=== PATIENT | male | born 1970 | race Caucasian/White ===

== ENCOUNTER 2020-01-14 04:55 | Emergency (ER) | payer OTHER ==
[~2020-01-14] VITALS: Ht 185.4 cm; Wt 88.9 kg
--- NOTE | 2020-01-14 05:00 | NUR ---
PT TITA BONNER. TAKEN TO BED 11
[2020-01-14 05:11] VITALS: BP 140/89
--- NOTE | 2020-01-14 05:15 | NUR ---
49 YO M BIB [facility] FOR C/C OF GENERALIZED WEAKNESS X30 MIN. LOC X4. PT STATES HE WOKE UP AND "FELT LIKE HIS BLOOD SUGAR WAS LOW" AND ATE CHOCOLATE. PT STATES HE "FELT LIKE HIS BP MIGHT BE HIGH" SO HE TOOK HIS RX OF LISINOPRIL. PT PRESENTS WITH BLOOD SUGAR OF 228. VSS. FACE IS EVEN AND SMILE SYMMETRICAL. ARMS AND LEGS ARE EQUAL IN STRENGTH BILATERALLY. PT DENIES LOSS OF CONSCIOUSNESS. S1S2 HEARD. LUNG SOUNDS CLEAR THROUGHOUT. CAP REFILL <3. NO N/V/D. DENIES TRAVEL, COUGH, FEVER, OR SOB. PT PLACED ON GEOPHYSICAL ENGINEER. BED LOCKED AND IN LOWEST POSITION. SIDE RAILSX1. NK[facility] MED HX: HTN, DM2, CIRROSIS RX: LISINOPRIL, INSULIN, GLIMEPIRIDE
--- NOTE | 2020-01-14 05:18 | NUR ---
ERMD AT BEDSIDE EVALUATING PT
--- NOTE | 2020-01-14 05:31 | NUR ---
LABS DRAWN AND WALKED TO LAB
--- NOTE | 2020-01-14 05:31 | NUR ---
EKG BEING PERFORMED AT BEDSIDE
[2020-01-14 05:46] LABS: BASOPHILS % (AUTO) 0.7 % (0.0-2.0); EOSINOPHILS # (AUTO) 0.1 K/uL (0-0.4); EOSINOPHILS % (AUTO) 1.4 % (0.0-4.0); HEMATOCRIT 38.4 % (36-52); HEMOGLOBIN 13.2 g/dL (12.0-18.0); LYMPHOCYTES # (AUTO) 1.3 K/uL (2.0-11.5); LYMPHOCYTES % (AUTO) 31.1 % (20.5-51.1); MEAN CORPUSCULAR HEMOGLOBIN 32 pg (27-31); MEAN CORPUSCULAR HGB CONC 34 g/dL (33-37); MEAN CORPUSCULAR VOLUME 92.2 fL (80-94); MONOCYTES # (AUTO) 0.5 K/uL (0.8-1.0); MONOCYTES % (AUTO) 11.5 % (1.7-9.3); NEUTROPHILS # (AUTO) 2.3 K/uL (1.8-7.7); NEUTROPHILS % (AUTO) 55.3 % (42.2-75.2); PLATELET COUNT (AUTO) 83 K/uL (140-450); RED BLOOD CELL COUNT(AUTO) 4.17 MIL/uL (4.20-6.10); RED CELL DISTRIBUTION WIDTH 14.4 % (11.6-13.7); WHITE BLOOD COUNT (AUTO) 4.2 K/uL (4.8-10.8)
[2020-01-14 05:50] LABS: ALBUMIN 2.6 g/dL (3.4-5.0); ANION GAP 9.1 (8-16); CARBON DIOXIDE 27.9 mmol/L (21-32); CREATININE 0.9 mg/dL (0.6-1.3); TOTAL BILIRUBIN 1.4 mg/dL (0.0-1.0)
--- NOTE | 2020-01-14 05:56 | NUR ---
PT AMBULATED TO [facility]
--- NOTE | 2020-01-14 06:02 | NUR ---
RETURNED TO BED FROM . PLACED BACK ON CREDENTIALING COORDINATOR
[2020-01-14 06:20] VITALS: BP 155/92
--- NOTE | 2020-01-14 06:20 | NUR ---
Patient discharged with v/s stable. Written and verbal after care instructions given and explained. Patient verbalized understanding. Ambulatory with steady gait. All questions addressed prior to discharge. Advised to follow up with PMD.
== END 2020-01-14 06:20 | disposition home or self-care (01) ==
LOC: MED 04:55
DX: I10 Essential (primary) hypertension (principal); F03.90 Unspecified dementia, unspecified severity, without behavioral disturbance, psychotic disturbance, mood disturbance, and anxiety
CPT/HCPCS: 36415; 80053; 85025; 93005; 99284

== ENCOUNTER 2020-01-28 21:56 | Emergency (ER) | payer OTHER ==
[~2020-01-28] VITALS: Ht 180.3 cm; Wt 95.3 kg
[2020-01-28 22:00] VITALS: BP 171/101
[2020-01-28 23:22] VITALS: BP 165/92
== END 2020-01-28 23:24 | disposition home or self-care (01) ==
LOC: MED 21:56
DX: K59.00 Constipation, unspecified (principal); R10.9 Unspecified abdominal pain; E11.9 Type 2 diabetes mellitus without complications; I10 Essential (primary) hypertension; F03.90 Unspecified dementia, unspecified severity, without behavioral disturbance, psychotic disturbance, mood disturbance, and anxiety
CPT/HCPCS: 74022; 81002; 99283

== ENCOUNTER 2020-02-25 17:02 | Emergency (ER) | payer OTHER ==
--- NOTE | 2020-02-25 17:30 | NUR ---
LEFT WITHOUT BEING TRIAGED.
== END 2020-02-25 17:30 | disposition left against medical advice (07) ==
LOC: MED 17:02
DX: I10 Essential (primary) hypertension (principal); Z53.21 Procedure and treatment not carried out due to patient leaving prior to being seen by health care provider